=== PATIENT | female | born 1980 | race Caucasian/White ===

== ENCOUNTER 2017-07-04 20:33 | Emergency (ER) | payer OTHER ==
--- NOTE | 2017-07-04 22:53 | ED Physician Documentation ---
PD HPI OPHTHO - Stated complaint Stated Complaint: LT EYE INJ - Chief complaint Chief Complaint: General - History obtained from History obtained from: Patient - History of Present Illness Timing - onset: Yesterday Timing - details: Abrupt onset, Intermittant Location: Left Associated symptoms: FB sensation, Other (flashing/flashers in peripheral vision ) Contributing factors: Wears glasses. No: Wears contacts Similar symptoms before: Has not had sx before Recently seen: Not recently seen - Additional information Additional information: six days ago, patient was accidentally struck in left eye with a projectile fired from a Ner[employer] gun. Yesterday, patient experienced episodes of flashers in peripheral vision of love left eye. Flashers continue to appear throughout the day today, and thus she contacted ophthalmology. She was told there would be an appointment available at 4 PM, but was instructed to go to the emergency department. Patient elected to not go to the appointment, and also wanted to wait and see if symptoms improved before coming to emergency department. Tonight , her spouse arrives home from work and told patient she should go to the emergency department. Review of Systems Eyes: reports: Other (mild FB sensation. peripheral flashers left eye). 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 : None HEENT: None Psych: None Musculoskeletal: None Derm: None - Allergies Allergies/Adverse Reactions: Allergies Allergy/AdvReac Type Severity Reaction Status Date / Time Sulfa (Sulfonamide AdvReac Rash Verified 07/04/17 20:51 Antibiotics) - Social History Does the pt smoke?: No Smoking Status: Never smoker Does the pt drink ETOH?: No Does the pt have substance abuse?: No - Immunizations Immunizations are current?: Yes - POLST Patient has POLST: No PD ED PE NORMAL - Vitals Vital signs reviewed: Yes - General General: Alert and oriented X 3, No acute distress, Well developed/nourished - HEENT HEENT: Atraumatic, PERRL, EOMI PD ED PE EXPANDED - Eyes Eyes: PERRL, Normal accommodation, Fluorescein uptake (scant uptake left eye over sclera, laterally (temporally)), Anterior chambers clear, Normal fundi, Other (fundoscopic exam appears normal using panophthalmoscope). No: Hyphema, Retinal hemorrhage Results - Vitals Vitals: Oxygen O2 Source Room air PD MEDICAL DECISION MAKING - ED course Complexity details: considered differential, d/w patient ED course: I attempted to contact Dr. Brewster (ophthalmology), but he is unavailable (on vacation). I was comfortable discharging patient, but emphasized need for ophthalmology follow up. Departure - Departure Disposition: 01 Home, Self Care Clinical Impression: Eye injury, non-penetrating Condition: Good Instructions: Flashes and Floaters Comments: Contact ophthalmology for immediate follow-up appointment. If you do not have an nursing assoc, you can contact your insurance provider to be assigned one. Discharge Date/Time: 07/05/17 00:20
[2017-07-05] MEDS ORDERED: PROPARACAINE 0.5% OPHTH DROPS 15 ML ONE (00:04)
[2017-07-05 00:20] VITALS: BP 126/86
== END 2017-07-05 00:20 | disposition home or self-care (01) ==
LOC: ED 20:33
DX: S05.92XA Unspecified injury of left eye and orbit, initial encounter (principal); W20.8XXA Other cause of strike by thrown, projected or falling object, initial encounter
CPT/HCPCS: 99282; 99283; J3490

== ENCOUNTER 2018-08-01 11:34 | Outpatient (CLI) | payer OTHER | END 2018-08-01 11:35 | disposition home or self-care (01) | LOC: LAB 11:34 | PROVIDERS: ATTEND Nurse Practitioner Obstetrics & Gynecology | DX: Z87.59 Personal history of other complications of pregnancy, childbirth and the puerperium (principal) | CPT/HCPCS: 36415; 84144; 84443; 84702 ==